=== PATIENT | male | born 1960 | race African-American/Black ===

== ENCOUNTER 2023-12-26 11:15 | Inpatient (IN) | payer MEDICAID, OTHER ==
[~2023-12-26] VITALS: Ht 175.3 cm; Wt 191.1 kg
[2023-12-26 11:56] LABS: HEMATOCRIT. 38.1 % (42.0-52.0); HEMOGLOBIN. 12.3 g/dL (14.0-18.0); MEAN CORPUSCULAR HEMOGLOBIN 29.9 pg (28.0-32.0); MEAN CORPUSCULAR HGB CONC 32.3 g/dL (31.0-37.0); MEAN CORPUSCULAR VOLUME 92.4 fL (80.0-94.0); MEAN PLATELET VOLUME 7.6 fl (7.4-10.4); PLATELET 266 x1000/uL (130-400); RED BLOOD CELL COUNT 4.12 mill/uL (4.7-6.1); RED CELL DISTRIBUTION WIDTH 15.1 % (11.6-14.6); WHITE BLOOD COUNT 6.7 x1000/uL (4.5-11.0)
[2023-12-26 12:01] LABS: CHLORIDE 102 mEq/L (98-107); POTASSIUM 4.2 mEq/L (3.5-5.1); SODIUM 141 mEq/L (136-145)
[2023-12-26 12:02] LABS: CARBON DIOXIDE 36 mEq/L (21-32)
[2023-12-26 12:03] LABS: CALCIUM 9.8 mg/dL (8.7-10.4)
[2023-12-26 12:07] LABS: CREATININE 0.9 mg/dL (0.6-1.3); GLUCOSE 103 mg/dL (70-105); UREA NITROGEN BLOOD 10 mg/dL (9-23)
[2023-12-26 12:08] LABS: TROPONIN I HIGH SENSITIVITY 6 ng/L (3.0-53)
[2023-12-26 12:14] LABS: DIFFERENTIAL COMMENT 1
[2023-12-26 12:52] LABS: PLATELET ESTIMATE NORMAL
[2023-12-26 13:37] LABS: BG BASE EXCESS 7.7 mmol/L (-2.0-2.0); BG DEOXYHEMOGLOBIN 6.9 % (0.0-5.0); BG FRACTION INSPIRED OXYGEN 21; BG HCO3 ACT 34.4 mmol/L (22.0-26.0); BG METHEMOGLOBIN 0.3 % (0.0-1.5); BG OXYHEMOGLOBIN 91.8 % (94.0-97.0); BG PCO2 57.7 mmHg (35.0-45.0); BG PH 7.393 (7.350-7.450); BG PO2 67.2 mmHg (75.0-100.0); BG SAMPLE SITE RIGHT RADIAL; BG TOTAL HEMOGLOBIN 13.1 g/dL (12.0-18.0); BG VENT MODE ROOM AIR
[2023-12-26] MEDS: FUROSEMIDE 40MG/4ML VIAL IVP SCH (17:37)
[2023-12-27] VITALS: BP 170/80; PULSE 83; RESP 18; TEMP 97.7
[2023-12-27 04:00] VITALS: BP 141/50; PULSE 81; RESP 18; TEMP 98.3
[2023-12-27] MEDS: FUROSEMIDE 40MG/4ML VIAL IVP SCH (07:03)
[2023-12-27 08:00] VITALS: BP 158/85; PULSE 85; RESP 15; TEMP 97.1
[2023-12-27 09:01] LABS: BASOPHILS % 0.4 % (0.0-2.0); EOSINOPHILS % 2.6 % (0.0-5.0); HEMATOCRIT. 39.7 % (42.0-52.0); HEMOGLOBIN. 13.1 g/dL (14.0-18.0); LYMPHOCYTES % 25.3 % (20.0-50.0); MEAN CORPUSCULAR HEMOGLOBIN 30.3 pg (28.0-32.0); MEAN CORPUSCULAR HGB CONC 33.1 g/dL (31.0-37.0); MEAN CORPUSCULAR VOLUME 91.7 fL (80.0-94.0); MEAN PLATELET VOLUME 7.4 fl (7.4-10.4); MONOCYTES % 10.8 % (2.0-8.0); NEUTROPHILS % 60.9 % (40.0-76.0); PLATELET 268 x1000/uL (130-400); RED BLOOD CELL COUNT 4.33 mill/uL (4.7-6.1); RED CELL DISTRIBUTION WIDTH 14.6 % (11.6-14.6); WHITE BLOOD COUNT 7.2 x1000/uL (4.5-11.0)
[2023-12-27 09:43] LABS: CARBON DIOXIDE 33 mEq/L (21-32); CHLORIDE 98 mEq/L (98-107); POTASSIUM 4.2 mEq/L (3.5-5.1); SODIUM 137 mEq/L (136-145)
[2023-12-27 09:44] LABS: CALCIUM 9.7 mg/dL (8.7-10.4)
[2023-12-27 09:49] LABS: CREATININE 0.9 mg/dL (0.6-1.3); GLUCOSE 135 mg/dL (70-105); UREA NITROGEN BLOOD 10 mg/dL (9-23)
[2023-12-27] MEDS ORDERED: ACETAMINOPHEN 325MG TABLET PO PRN (11:15)
[2023-12-27] MEDS ORDERED: IPRATROPIUM/ALBUTEROL 0.5-3(2.5)MG/3ML NEB HHN PRN (11:15)
[2023-12-27] MEDS ORDERED: ONDANSETRON HCL 4MG/2ML INJ IV PRN (11:15)
[2023-12-27 11:39] LABS: CHLORIDE 99 mEq/L (98-107); POTASSIUM 4.4 mEq/L (3.5-5.1); SODIUM 139 mEq/L (136-145)
[2023-12-27 11:40] LABS: CARBON DIOXIDE 34 mEq/L (21-32)
[2023-12-27 11:41] LABS: CALCIUM 9.8 mg/dL (8.7-10.4)
[2023-12-27 11:45] LABS: CREATININE 0.9 mg/dL (0.6-1.3); GLUCOSE 136 mg/dL (70-105); UREA NITROGEN BLOOD 14 mg/dL (9-23)
[2023-12-27 11:47] LABS: ALANINE AMINOTRANSFERASE 22 IU/L (10-49); ALBUMIN 4.4 g/dL (3.2-4.8); ASPARTATE AMINOTRANSFERASE 19 IU/L (<34); BILIRUBIN TOTAL 0.5 mg/dL (0.1-1.0)
[2023-12-27 12:00] VITALS: BP 164/84; PULSE 82; RESP 17; TEMP 98.5
[2023-12-27 16:00] VITALS: BP 178/95; PULSE 104; RESP 17; TEMP 97.3
[2023-12-27 20:00] VITALS: BP 147/86; PULSE 85; RESP 19; TEMP 98
[2023-12-28] VITALS: BP 156/126; PULSE 81; RESP 20; TEMP 97.7
[2023-12-28] MEDS: CLONIDINE 0.1MG TABLET PO PRN (01:06)
[2023-12-28 04:00] VITALS: BP 159/79; PULSE 76; RESP 20; TEMP 98
[2023-12-28 08:00] VITALS: BP 169/83; PULSE 76; RESP 20; TEMP 97.4
[2023-12-28 08:42] LABS: BG BASE EXCESS 9.2 mmol/L (-2.0-2.0); BG CARBOXYHEMOGLOBIN 1.7 % (0.5-1.5); BG DEOXYHEMOGLOBIN 8.8 % (0.0-5.0); BG FRACTION INSPIRED OXYGEN 21; BG HCO3 ACT 36.2 mmol/L (22.0-26.0); BG METHEMOGLOBIN 0.3 % (0.0-1.5); BG OXYHEMOGLOBIN 89.2 % (94.0-97.0); BG PCO2 59.5 mmHg (35.0-45.0); BG PH 7.402 (7.350-7.450); BG SAMPLE SITE RIGHT RADIAL; BG TOTAL HEMOGLOBIN 14.3 g/dL (12.0-18.0); BG VENT MODE ROOM AIR
[2023-12-28] MEDS: EMPAGLIFLOZIN 10MG TABLET PO SCH (09:45)
[2023-12-28 12:00] VITALS: BP 181/91; PULSE 89; RESP 18; TEMP 97.9
[2023-12-28] MEDS: LOSARTAN 25 MG TABLET PO SCH (13:23)
[2023-12-28] MEDS ORDERED: HYDRALAZINE HCL 10MG TABLET PO PRN (13:30)
[2023-12-28] MEDS ORDERED: DILTIAZEM HCL 60MG TABLET PO SCH (14:00)
[2023-12-28] MEDS: ACETAMINOPHEN 325MG TABLET PO PRN (15:24)
[2023-12-28] MEDS: HYDRALAZINE HCL 50MG TABLET PO SCH (15:24)
[2023-12-28] MEDS: SPIRONOLACTONE 25MG TABLET PO SCH (15:25)
[2023-12-28 16:00] VITALS: BP 178/75; PULSE 83; RESP 20; TEMP 97.6
[2023-12-28 17:17] LABS: BASOPHILS % 0.3 % (0.0-2.0); EOSINOPHILS % 2.7 % (0.0-5.0); LYMPHOCYTES % 25.8 % (20.0-50.0); MEAN CORPUSCULAR HEMOGLOBIN 29.5 pg (28.0-32.0); MEAN CORPUSCULAR HGB CONC 32.4 g/dL (31.0-37.0); MEAN CORPUSCULAR VOLUME 91.2 fL (80.0-94.0); MEAN PLATELET VOLUME 7.8 fl (7.4-10.4); MONOCYTES % 11.6 % (2.0-8.0); NEUTROPHILS % 59.6 % (40.0-76.0); PLATELET 277 x1000/uL (130-400); RED BLOOD CELL COUNT 4.39 mill/uL (4.7-6.1); RED CELL DISTRIBUTION WIDTH 15.1 % (11.6-14.6); WHITE BLOOD COUNT 7.9 x1000/uL (4.5-11.0)
[2023-12-28 17:21] LABS: CHLORIDE 99 mEq/L (98-107); SODIUM 137 mEq/L (136-145)
[2023-12-28 17:22] LABS: CALCIUM 9.6 mg/dL (8.7-10.4); CARBON DIOXIDE 35 mEq/L (21-32)
[2023-12-28 17:27] LABS: CREATININE 0.8 mg/dL (0.6-1.3); GLUCOSE 114 mg/dL (70-105); UREA NITROGEN BLOOD 10 mg/dL (9-23)
[2023-12-28 20:00] VITALS: BP 130/75; PULSE 78; RESP 18; TEMP 97.5
[2023-12-29] VITALS (7 sets, daily range): BP systolic 143–163; BP diastolic 69–101; PULSE 79–101; RESP 17–20; TEMP 97–98.6
[2023-12-29 06:41] LABS: BASOPHILS % 0.8 % (0.0-2.0); EOSINOPHILS % 2.8 % (0.0-5.0); HEMATOCRIT. 41.4 % (42.0-52.0); HEMOGLOBIN. 13.7 g/dL (14.0-18.0); LYMPHOCYTES % 25.7 % (20.0-50.0); MEAN CORPUSCULAR HEMOGLOBIN 30.2 pg (28.0-32.0); MEAN CORPUSCULAR HGB CONC 33.2 g/dL (31.0-37.0); MEAN CORPUSCULAR VOLUME 91.1 fL (80.0-94.0); MEAN PLATELET VOLUME 7.7 fl (7.4-10.4); MONOCYTES % 11.3 % (2.0-8.0); NEUTROPHILS % 59.4 % (40.0-76.0); PLATELET 283 x1000/uL (130-400); RED BLOOD CELL COUNT 4.54 mill/uL (4.7-6.1); RED CELL DISTRIBUTION WIDTH 15.1 % (11.6-14.6); WHITE BLOOD COUNT 8.2 x1000/uL (4.5-11.0)
[2023-12-29 06:57] LABS: CALCIUM 9.7 mg/dL (8.7-10.4); CARBON DIOXIDE 32 mEq/L (21-32); CHLORIDE 99 mEq/L (98-107); POTASSIUM 4.2 mEq/L (3.5-5.1); SODIUM 137 mEq/L (136-145)
[2023-12-29 07:03] LABS: CREATININE 0.9 mg/dL (0.6-1.3); GLUCOSE 120 mg/dL (70-105); UREA NITROGEN BLOOD 13 mg/dL (9-23)
[2023-12-30] VITALS (7 sets, daily range): BP systolic 99–175; BP diastolic 51–90; PULSE 79–97; RESP 19–22; TEMP 96.9–98.8
[2023-12-31] VITALS (7 sets, daily range): BP systolic 125–152; BP diastolic 66–84; PULSE 79–94; RESP 18–19; TEMP 97–98.4; O2SAT 94
[2023-12-31 06:09] LABS: CALCIUM 10.1 mg/dL (8.7-10.4); CARBON DIOXIDE 33 mEq/L (21-32); CHLORIDE 96 mEq/L (98-107); POTASSIUM 4.4 mEq/L (3.5-5.1); SODIUM 135 mEq/L (136-145)
[2023-12-31 06:15] LABS: CREATININE 0.9 mg/dL (0.6-1.3); GLUCOSE 130 mg/dL (70-105); UREA NITROGEN BLOOD 13 mg/dL (9-23)
[2023-12-31] MEDS ORDERED: LOSA25TA26 PO (11:59)
[2023-12-31] MEDS ORDERED: SPIR25TA PO (11:59)
[2023-12-31] MEDS ORDERED: FURO40TA5 MT (11:59)
[2023-12-31] MEDS ORDERED: HYDR50TA39 PO (11:59)
== END 2023-12-31 16:30 | disposition home or self-care (01) | DRG 140 ==
LOC: EDBD 11:15 → ER 11:15 → 7EST 13:01 → EDBEDREQTM 13:22 → EDBEDREQ 13:22
PROVIDERS: ADMIT Internal Medicine; ATTEND Internal Medicine
PROC: 5A09357 Assistance with Respiratory Ventilation, Less than 24 Consecutive Hours, Continuous Positive Airway Pressure (ICD-10-PCS; principal; 2023-12-31)
DX: J44.1 Chronic obstructive pulmonary disease with (acute) exacerbation (principal); J96.22 Acute and chronic respiratory failure with hypercapnia; I50.31 Acute diastolic (congestive) heart failure; Z68.44 Body mass index [BMI] 60.0-69.9, adult; E66.2 Morbid (severe) obesity with alveolar hypoventilation; D64.9 Anemia, unspecified; E11.9 Type 2 diabetes mellitus without complications; I11.0 Hypertensive heart disease with heart failure; F51.9 Sleep disorder not due to a substance or known physiological condition, unspecified; I16.0 Hypertensive urgency; R00.1 Bradycardia, unspecified; Z79.899 Other long term (current) drug therapy
CPT/HCPCS: 36415; 36600; 71045; 80048; 80053; 80061; 82375; 82805; 83735; 83880; 84145; 84443; 84484; 85025; 85379; 93005; 93306; 93970; 94660; 97162; 99285; J1940